=== PATIENT | male | born 1990 | race Caucasian/White ===

== ENCOUNTER 2018-09-15 22:12 | Emergency (ER) | payer SELFPAY ==
[2018-09-15 22:39] VITALS: BP 136/70; PULSE 76; TEMP 98.6; BMI 24.1
--- NOTE | 2018-09-16 03:24 | PDOC ---
History of Present Illness - General Chief Complaint: Headache Stated Complaint: HEADACHE VOMITING BLOOD Time Seen by Provider: 09/16/18 03:18 History Source: Patient - History of Present Illness Initial Comments: 09/16/18 03:24 28 year old male with vomited 3 times yesterday blood tinged vomitus as per patient. patient reports that he feeling burning up the chest after vomiting. denies fever / chills. patient reports that he has a headache for the last 2 months. denies cough, SOB, recent travel. denies vision changes, weakness reports headache on and off x 6 month tonight headache seem to worst. Past History - Past Medical History Allergies/Adverse Reactions: Allergies Allergy/AdvReac Type Severity Reaction Status Date / Time No Known Allergies Allergy Verified 09/15/18 22:39 Home Medications: Ambulatory Orders No Home Medications 11/13/11 Famotidine [Pepcid] 40 mg PO DAILY #20 tablet 09/16/18 COPD: No - Suicide/Smoking/Psychosocial Hx Smoking Status: No Smoking History: Current every day smoker Have you smoked in the past 12 months: Yes Number of Cigarettes Smoked Daily: 3 Information on smoking cessation initiated: No Hx Alcohol Use: Yes Drug/Substance Use Hx: No Review of Systems - Review of Systems Able to Perform ROS?: Yes Is the patient limited Armenian proficient: No Constitutional: No: Symptoms Reported, See HPI, Chills, Diaphoresis, Fever, Loss of Appetite, Malaise, Night Sweats, Weakness, Weight Stable, Unintentional Wgt. Loss, Unexplained wgt Loss, Other ABD/GI: Yes: Nausea, Vomiting *Physical Exam - Vital Signs Last Vital Signs Temp Pulse Resp BP Pulse Ox 98.6 F 76 18 136/70 99 09/15/18 22:35 09/15/18 22:35 09/15/18 22:35 09/15/18 22:35 09/15/18 22:35 - Physical Exam General Appearance: Yes: Appropriately Dressed HEENT: positive: Nasal Congestion Respiratory/Chest: positive: Lungs Clear, Normal Breath Sounds Cardiovascular: positive: Regular Rhythm, Regular Rate Gastrointestinal/Abdominal: positive: Normal Bowel Sounds, Tender (right upper quadrant mildly tender). 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 gastritis? P; labs IVF protonix outpatient GI/neuro followup ct head: negative patient is well appearing. *DC/Admit/Observation/Transfer Diagnosis at time of Disposition: Headache Qualifiers: Headache type: unspecified Headache chronicity pattern: unspecified pattern Intractability: not intractable Qualified Code(s): R51 - Headache Abdominal pain Qualifiers: Abdominal location: unspecified location Qualified Code(s): R10.9 - Unspecified abdominal pain - Discharge Dispostion Disposition: HOME - Prescriptions Prescriptions: Famotidine [Pepcid] 40 mg PO DAILY #20 tablet - Referrals Referrals: Mara Mcwilliams MD [Staff Physician] - Eva Dutta MD [Staff Physician] - [facility] [Provider Group] - 24 hours - Patient Instructions Printed Discharge Instructions: Migraine -- Adult Additional Instructions: Drink plenty of fluids You may take Tylenol every 4-6 hours. There was no acute findings on your exams Please follow-up with a getter welder and a neurologist. Please also follow up with the primary care physician. - Post Discharge Activity Forms/Work/School Notes: Back to Work
[2018-09-16] MEDS ORDERED: ONDANSETRON 4 MG/2 ML VIAL IVPUSH ONE (03:26)
[2018-09-16] MEDS ORDERED: PANTOPRAZOLE SODIUM 40 MG VIAL IVPB ONE (03:26)
[2018-09-16] MEDS ORDERED: ACETAMINOPHEN 1000 MG/100 ML VIAL (NON FORMULARY) IVPB ONE (03:30)
[2018-09-16] MEDS ORDERED: METOCLOPRAMIDE HCL INJECTION 10 MG/2 ML VIAL IVPUSH ONE (03:30)
--- NOTE | 2018-09-16 03:30 | PDOC ---
*Physical Exam - Vital Signs Last Vital Signs Temp Pulse Resp BP Pulse Ox 98.6 F 76 18 136/70 99 09/15/18 22:35 09/15/18 22:35 09/15/18 22:35 09/15/18 22:35 09/15/18 22:35 ED Treatment Course - LABORATORY CBC & Chemistry Diagram: 09/16/18 03:38 09/16/18 03:38 Medical Decision Making - Medical Decision Making 09/16/18 03:29 Patient seen by the advanced practice provider under my direct supervision. Ancillary testing reviewed as necessary. I agree with plan as outlined by the advanced practice provider. *DC/Admit/Observation/Transfer Diagnosis at time of Disposition: Headache Qualifiers: Headache type: unspecified Headache chronicity pattern: unspecified pattern Intractability: not intractable Qualified Code(s): R51 - Headache Abdominal pain Qualifiers: Abdominal location: unspecified location Qualified Code(s): R10.9 - Unspecified abdominal pain - Discharge Dispostion Disposition: HOME - Prescriptions Prescriptions: Famotidine [Pepcid] 40 mg PO DAILY #20 tablet - Referrals - Patient Instructions - Post Discharge Activity
[2018-09-16 03:48] LABS: HEMATOCRIT 42.6 % (35.4-49); HEMOGLOBIN 14.8 GM/dL (11.7-16.9); MCH 31.3 pg (25.7-33.7); MCHC 34.7 g/dl (32.0-35.9); MEAN CELL VOLUME 90.1 fl (80-96); MEAN PLT VOLUME 8.5 fl (7.5-11.1); PLATELET COUNT 211 K/MM3 (134-434); RBC 4.73 M/mm3 (4.00-5.60); RDW 13.9 % (11.9-15.9); WHITE BLOOD COUNT 6.1 K/mm3 (4.0-10.0)
[2018-09-16 04:19] LABS: URINE APPEARANCE CLEAR; URINE BILIRUBIN NEGATIVE (NEGATIVE); URINE COLOR YELLOW; URINE GLUCOSE (UA) NEGATIVE (NEGATIVE); URINE KETONE NEGATIVE (NEGATIVE); URINE LEUK ESTERASE NEGATIVE (NEGATIVE); URINE NITRITE NEGATIVE (NEGATIVE); URINE PROTEIN NEGATIVE (NEGATIVE)
[2018-09-16 04:21] LABS: ALBUMIN 4.1 g/dl (3.4-5.0); ALK PHOS 79 U/L (45-117); ANION GAP 5 MMOL/L (8-16); BILIRUBIN,TOTAL 1.4 mg/dL (0.2-1); BLOOD UREA NITROGEN 7 mg/dL (7-18); CALCIUM 9.3 mg/dL (8.5-10.1); CHLORIDE 104 mmol/L (98-107); CO2 27 mmol/L (21-32); CREATININE 0.8 mg/dL (0.55-1.3); GLUCOSE,RANDOM 98 mg/dL (74-106); LIPASE 110 U/L (73-393); POTASSIUM 3.7 mmol/L (3.5-5.1); SGOT/AST 23 U/L (15-37); SGPT/ALT 31 U/L (13-61); SODIUM 137 mmol/L (136-145); TOT PROT 7.8 g/dl (6.4-8.2)
[2018-09-16] MEDS ORDERED: PANTOPRAZOLE SODIUM 40 MG/100 ML BAG IVPB ONE (04:33)
[2018-09-16] MEDS ORDERED: ACETAMINOPHEN INJECTION 100 ML IVPB ONE (04:33)
[2018-09-16] MEDS ORDERED: METOCLOPRAMIDE HCL INJECTION 10 MG/2 ML VIAL ONE (04:33)
[2018-09-16] MEDS ORDERED: SODIUM CHLORIDE 1,000 ML IV STA (04:35)
== END 2018-09-16 06:35 | disposition home or self-care (01) ==
LOC: JER 22:12
PROC: 3E0337Z Introduction of Electrolytic and Water Balance Substance into Peripheral Vein, Percutaneous Approach (ICD-10-PCS; principal; 2018-09-15)
PROC: 3E033GC Introduction of Other Therapeutic Substance into Peripheral Vein, Percutaneous Approach (ICD-10-PCS; 2018-09-15)
PROC: 3E033GC Introduction of Other Therapeutic Substance into Peripheral Vein, Percutaneous Approach (ICD-10-PCS; 2018-09-15)
DX: R10.9 Unspecified abdominal pain (principal); R51 Headache
CPT/HCPCS: 36415; 70450-TC; 80053; 81003; 83690; 85027; 99281-25; J0131; J7030

== ENCOUNTER 2018-10-27 17:39 | Emergency (ER) | payer SELFPAY | END 2018-10-27 20:23 | disposition home or self-care (01) | LOC: JERFT 17:39 ==

== ENCOUNTER 2020-06-27 01:36 | Emergency (ER) | payer SELFPAY ==
[2020-06-27] MEDS ORDERED: ACETAMINOPHEN 325 MG TABLET (FP) PO ONE (01:58)
[2020-06-27 02:00] VITALS: BP 123/76; PULSE 78; TEMP 98.6; BMI 24.8
[2020-06-27 02:50] LABS: BASO % 0.6 % (0-2.0); EOS % 8.8 % (0-4.5); HEMOGLOBIN 15.1 GM/dL (11.7-16.9); LYMPH % 21.8 % (8-40); MCH 30.6 pg (25.7-33.7); MCHC 35.2 g/dl (32.0-35.9); MEAN CELL VOLUME 86.9 fl (80-96); MEAN PLT VOLUME 8.3 fl (7.5-11.1); MONO % 6.8 % (3.8-10.2); PLATELET COUNT 253 K/MM3 (134-434); RBC 4.94 M/mm3 (4.00-5.60); RDW 13.4 % (11.9-15.9); WHITE BLOOD COUNT 7.7 K/mm3 (4.0-10.0)
[2020-06-27 03:15] LABS: URINE APPEARANCE CLEAR; URINE BILIRUBIN NEGATIVE (NEGATIVE); URINE COLOR YELLOW; URINE GLUCOSE (UA) NEGATIVE (NEGATIVE); URINE KETONE NEGATIVE (NEGATIVE); URINE LEUK ESTERASE NEGATIVE (NEGATIVE); URINE NITRITE NEGATIVE (NEGATIVE); URINE PROTEIN NEGATIVE (NEGATIVE); URINE UROBILINOGEN 0.2 mg/dL (0.2-1.0)
[2020-06-27 03:50] LABS: BILIRUBIN,TOTAL 0.6 mg/dL (0.2-1); BLOOD UREA NITROGEN 19.4 mg/dL (7-18); CALCIUM 9.1 mg/dL (8.5-10.1); CREATININE 0.8 mg/dL (0.55-1.3); POTASSIUM 4.1 mmol/L (3.5-5.1); TOT PROT 7.9 g/dl (6.4-8.2)
== END 2020-06-27 05:21 | disposition home or self-care (01) ==
LOC: JER 01:36
DX: R10.9 Unspecified abdominal pain (principal)
CPT/HCPCS: 36415; 74177-TC; 80053; 81003; 83690; 85025; 87086; 99285-25; Q9967